=== PATIENT | female | born 1960 | race Caucasian/White ===

== ENCOUNTER 2017-07-17 17:51 | Emergency (ER) | payer BC ==
[~2017-07-17] VITALS: Ht 162.6 cm; Wt 65.8 kg
[~2017-07-17 17:51] MED LIST: B12INJ IM; CARAFATE1 GM/10 ML PO; CIPRO250 M1 PO; CIPRO500 MG PO; DIGESTIVE ENZY220 MG PO; HYDROCODONE-AP1 EAC6 PO; IBUPROFEN 800800 M1 PO; KEFLEX500 M1 PO; NAPROSYN500 MG PO; PROBIOTIC1 EAC1 PO; PYRIDIUM200 MG PO; TRAMADOL 50 MG50 MG PO; VITAMIN B-1100 M1 PO; VITAMIN D3400 UNIT PO; VITAMINC500 PO; ZANTAC 150MG T150 MG PO; [UNRECOGNIZED DRUG - OTHER]
[2017-07-17] MEDS ORDERED: VITAMIN D3400 UNIT PO (18:11)
[2017-07-17] MEDS ORDERED: VITAMIN B122500 MCG PO (18:12)
[2017-07-17 18:32] LABS: URINE BILIRUBIN NEGATIVE (Negative); URINE BLOOD TRACE (Negative); URINE CLARITY CLEAR; URINE COLOR YELLOW; URINE GLUCOSE-RANDOM NEGATIVE (Negative); URINE KETONES NEGATIVE (Negative); URINE LEUKOCYTES-REFLEX 1+ (Negative); URINE NITRITE-REFLEX NEGATIVE (Negative); URINE PROTEIN NEGATIVE (Negative); URINE SPECIFIC GRAVITY <= 1.005 (1.005-1.030); URINE UROBILINOGEN 0.2 E.U./dl (0.2-1.0)
[2017-07-17 18:42] LABS: BACTERIA-REFLEX None Seen /HPF (None Seen); CASTS None Seen /LPF (None Seen); CRYSTALS None Seen /LPF (None Seen); SQUAMOUS 0-3 Few /LPF (0-3); URINE RBC None Seen /HPF (0-2); URINE WBC-REFLEX 0-5 Rare /HPF (0-5)
[2017-07-17 18:51] LABS: ABSOLUTE LYMPHOCYTES 2.9 thou/uL (0.8-5.3); ABSOLUTE MONOCYTES 0.8 thou/uL (0.0-1.2); ABSOLUTE NEUTROPHILS 5.5 thou/uL (1.6-8.1); BASOPHILS 0.4 %; EOSINOPHILS 0.4 %; HEMATOCRIT 40.7 % (37.0-47.0); HEMOGLOBIN 13.5 gm/dL (12.0-15.0); LYMPHOCYTES 31.6 %; MCH 30.4 pg (26.0-34.0); MCHC 33.1 g/dL (28.0-37.0); MCV 91.8 fL (80.0-100.0); MONOCYTES 8.1 %; MPV 9.1 fl. (7.2-11.1); NUCLEATED RBCS 0 /100WBC; PLATELET COUNT* 258 thou/uL (150-400); POLYS 59.5 %; RBC 4.43 mil/uL (4.20-5.00); RDW-CV 13.3 % (10.5-14.5); WBC 9.3 thou/uL (4.0-11.0)
[2017-07-17 18:56] LABS: ANION GAP 8 mmol/L (7-16); BUN 14 mg/dL (7-18); CALCIUM 9.3 mg/dL (8.5-10.1); CHLORIDE 106 mmol/L (98-107); CO2 29 mmol/L (21-32); CREATININE 0.9 mg/dL (0.6-1.3); GLUCOSE 105 mg/dL (70-99); POTASSIUM 3.8 mmol/L (3.5-5.1); SODIUM 143 mmol/L (136-145)
[2017-07-17 19:03] LABS: ALBUMIN 3.9 g/dL (3.4-5.0); ALKALINE PHOSPHATASE 67 U/L (46-116); LIPASE 73 U/L (73-393); SGOT 18 U/L (15-37); SGPT 24 U/L (30-65); TOTAL BILIRUBIN 0.4 mg/dL (<0.1-1.0); TOTAL PROTEIN 7.1 g/dL (6.4-8.2); TROPONIN-I LEVEL <0.06 ng/mL (<0.06)
[2017-07-17] MEDS ORDERED: NAPROSYN500 MG PO (19:53)
[2017-07-17] MEDS ORDERED: TRAMADOL 50 MG50 MG PO (19:53)
[2017-07-17] MEDS ORDERED: ROBAXIN 750 MG750 M1 PO (20:06)
[2017-07-17] MEDS ORDERED: HYDROCODONE-AP1 EAC6 PO (20:06)
[2017-07-17 20:09] VITALS: BP 128/58
--- NOTE | 2017-07-18 11:02 | EKG ---
[place] [address] ELECTROCARDIOGRAM REPORT Name: MARLENA CHAUDHARI Room: [facility]#: [id number] Admission: 07/17/17 Attend Phys: Discharge: 07/17/17 Date of : 64 Report #: [id number] THIS REPORT FOR: //name// [facility] ED Test Date: 2017-07-17 Test Time: 18:32:55 Pat Name: MARLENA CHAUDHARI Department: Room: Gender: F Talent Management Specialist: Theodora GUTHRIE : 1960 Requested By: Anali Tran Order Number: [id number] MD: Levy Hermosillo Measurements Intervals [place] Rate: 67 P: 58 WV: 146 QRS: 31 QRSD: 101 T: 34 QT: 408 QTc: 431 Interpretive Statements Sinus rhythm Probable left atrial enlargement Low voltage, precordial leads Minimal ST depression, lateral leads No previous ECG available for comparison Electronically Signed On 07-18-2017 11:02:30 CDT by Levy Hermosillo [email or web address] <ELECTRONICALLY SIGNED> By: Levy Hermosillo MD, [facility] 07/18/17 1102 31 31 Levy Hermosillo MD, [facility] /EPI
== END 2017-07-17 20:09 | disposition home or self-care (01) ==
LOC: M.ERS 17:51
PROVIDERS: Physician Assistant
DX: M54.9 Dorsalgia, unspecified (principal); F17.210 Nicotine dependence, cigarettes, uncomplicated; Z90.710 Acquired absence of both cervix and uterus; Z88.1 Allergy status to other antibiotic agents; Z88.0 Allergy status to penicillin; Z88.5 Allergy status to narcotic agent

== ENCOUNTER → 2018-12-18 | Outpatient (CLI) | payer OTHER ==
[~2018-12-18] MED LIST changes: +ROBAXIN 750 MG750 M1 PO; +VITAMIN B122500 MCG PO
== END ==
LOC: M.CT 12:45
DX: Z13.6 Encounter for screening for cardiovascular disorders (principal); I25.10 Atherosclerotic heart disease of native coronary artery without angina pectoris

== ENCOUNTER 2019-03-26 06:35 | Emergency (ER) | payer BC ==
[~2019-03-26] VITALS: Ht 162.6 cm; Wt 68.0 kg
[2019-03-26 06:38] VITALS: BP 142/52
[2019-03-26] MEDS ORDERED: VITAMIN E1000 UNIT PO (06:42)
[2019-03-26] MEDS ORDERED: OSTERA TABLET1 EAC1 PO (06:42)
[2019-03-26 07:32] LABS: URINE BLOOD 3+ (Negative); URINE CLARITY CLOUDY; URINE COLOR BROWN; URINE GLUCOSE-RANDOM NEGATIVE (Negative); URINE KETONES NEGATIVE (Negative); URINE NITRITE-REFLEX NEGATIVE (Negative); URINE PROTEIN 2+ (Negative); URINE SPECIFIC GRAVITY >= 1.030 (1.005-1.030); URINE UROBILINOGEN 0.2 E.U./dl (0.2-1.0)
[2019-03-26 07:34] LABS: ICTOTEST (BILI CONFIRMATORY) Negative (Negative); URINE BILIRUBIN 1+ (Negative); URINE LEUKOCYTES-REFLEX 2+ (Negative)
[2019-03-26 07:40] LABS: SQUAMOUS NONE SEEN /LPF (0-3)
[2019-03-26 07:41] LABS: BACTERIA-REFLEX >30 Many /HPF (None Seen); MUCUS 0-3 Light strn/LPF (None Seen); URINE RBC >20 Many /HPF (0-2); URINE WBC-REFLEX >25 Many /HPF (0-5)
[2019-03-26 07:42] LABS: CRYSTALS None Seen /LPF (None Seen); HYALINE CASTS 0-3 Few /LPF (None Seen)
[2019-03-26] MEDS ORDERED: MACROBID 100 M100 M1 PO (07:43)
== END 2019-03-26 07:50 | disposition home or self-care (01) ==
LOC: M.ERS 06:35
PROVIDERS: Emergency Medicine
DX: N39.0 Urinary tract infection, site not specified (principal); F17.210 Nicotine dependence, cigarettes, uncomplicated; Z88.0 Allergy status to penicillin; Z88.1 Allergy status to other antibiotic agents; Z88.5 Allergy status to narcotic agent; Z90.49 Acquired absence of other specified parts of digestive tract; Z90.711 Acquired absence of uterus with remaining cervical stump

== ENCOUNTER 2021-02-02 10:59 | Emergency (ER) | payer BC ==
[~2021-02-02] VITALS: Ht 162.6 cm; Wt 68.0 kg
[~2021-02-02 10:59] MED LIST changes: +MACROBID 100 M100 M1 PO; +OSTERA TABLET1 EAC1 PO; +VITAMIN E1000 UNIT PO
[2021-02-02] MEDS ORDERED: VITAMIN B-121000 MC2 SUBLING (11:12)
[2021-02-02] MEDS ORDERED: D VI PO (11:12)
[2021-02-02] MEDS ORDERED: PROBIOTIC1 EAC7 PO (11:13)
[2021-02-02] MEDS ORDERED: AZO STANDARD95 MG PO (11:13)
[2021-02-02] MEDS ORDERED: BACTRIM DS TAB1 EAC1 PO (11:13)
[2021-02-02] MEDS ORDERED: DIVIGEL TRANSDERM (11:13)
[2021-02-02] MEDS ORDERED: MELATONIN10 M3 PO (11:13)
[2021-02-02] MEDS ORDERED: VITAMIN C1000 MG PO (11:14)
[2021-02-02] MEDS ORDERED: VITAMIN E1000 UNIT PO (11:14)
[2021-02-02 13:37] LABS: URINE BILIRUBIN NEGATIVE (Negative); URINE BLOOD TRACE (Negative); URINE CLARITY CLEAR; URINE COLOR YELLOW; URINE GLUCOSE-RANDOM NEGATIVE (Negative); URINE KETONES 1+ (Negative); URINE LEUKOCYTES-REFLEX NEGATIVE (Negative); URINE NITRITE-REFLEX NEGATIVE (Negative); URINE PROTEIN NEGATIVE (Negative); URINE SPECIFIC GRAVITY >= 1.030 (1.005-1.030); URINE UROBILINOGEN 0.2 E.U./dl (0.2-1.0)
[2021-02-02 13:56] LABS: HEMATOCRIT 38.6 % (37.0-47.0); HEMOGLOBIN 12.9 gm/dL (12.0-15.0); MCHC 33.4 g/dL (28.0-37.0); MCV 89.8 fL (80.0-100.0); MPV 8.8 fl. (7.2-11.1); NUCLEATED RBCS 0 /100WBC; PLATELET COUNT* 269 thou/uL (150-400); RDW-CV 12.9 % (10.5-14.5); WBC 13.9 thou/uL (4.0-11.0)
[2021-02-02 14:04] LABS: CALCIUM 8.8 mg/dL (8.5-10.1); CREATININE 1.1 mg/dL (0.6-1.3); POTASSIUM 4.1 mmol/L (3.5-5.1)
[2021-02-02 14:09] LABS: ALBUMIN 4.2 g/dL (3.4-5.0); TOTAL BILIRUBIN 0.4 mg/dL (<0.1-1.0); TOTAL PROTEIN 7.5 g/dL (6.4-8.2)
[2021-02-02] MEDS ORDERED: ZOFRAN ODT4 MG DISSOLVE (14:26)
[2021-02-02 14:38] LABS: ABSOLUTE LYMPHOCYTES 1.7 thou/uL (0.8-5.3); ABSOLUTE MONOCYTES 0.1 thou/uL (0.0-1.2); ABSOLUTE NEUTROPHILS 12.1 thou/uL (1.6-8.1); ATYPICAL LYMPHS 2 %; PLATELET ESTIMATE ADEQUATE
[2021-02-02 14:50] VITALS: BP 111/54
--- NOTE | 2021-02-02 17:10 | EKG ---
[place] [address] ELECTROCARDIOGRAM REPORT Name: MARLENA CHAUDHARI Room: [facility]#: [id number] Admission: 02/02/21 Attend Phys: Discharge: 02/02/21 Date of : 64 Date of Service: 02/02/21 1349 Report #: [id number] THIS REPORT FOR: //name// [facility] ED Test Date: 2021-02-02 Test Time: 13:49:17 Pat Name: MARLENA CHAUDHARI Department: Room: Gender: Director Of Sales Marketing: MICH : 1960 Requested By: Grover Aponte Order Number: [id number] MD: Brian Vila Measurements Intervals [place] Rate: 65 P: 50 [place]: 144 QRS: 9 QRSD: 99 T: 31 QT: 445 QTc: 463 Interpretive Statements Sinus rhythm poor r wave progression Compared to ECG 07/17/2017 18:32:55 no change Electronically Signed On 02-02-2021 17:10:15 CDT by Brian Vila [email or web address] <ELECTRONICALLY SIGNED> By: Brian Vila MD, [facility] 02/02/21 3860 1349 1349 Brian Vila MD, [facility] /EPI
== END 2021-02-02 14:51 | disposition home or self-care (01) ==
LOC: M.ERS 10:59
PROVIDERS: Emergency Medicine Emergency Medical Services
DX: R11.2 Nausea with vomiting, unspecified (principal); F17.210 Nicotine dependence, cigarettes, uncomplicated; Z90.721 Acquired absence of ovaries, unilateral; Z90.711 Acquired absence of uterus with remaining cervical stump; Z90.49 Acquired absence of other specified parts of digestive tract; Z79.899 Other long term (current) drug therapy; Z79.2 Long term (current) use of antibiotics; Z88.8 Allergy status to other drugs, medicaments and biological substances; Z88.5 Allergy status to narcotic agent; Z88.1 Allergy status to other antibiotic agents; Z88.0 Allergy status to penicillin